=== PATIENT | female | born 1990 ===

== ENCOUNTER 2017-04-24 13:14 | Emergency (ER) | payer OTHER ==
[2017-04-24 13:32] VITALS: TEMP 98; O2SAT 100; BMI 18.0
[2017-04-24] MEDS ORDERED: Sodium Chloride 0.9% 1,000 ML IV STA (13:54)
--- NOTE | 2017-04-24 14:13 | ED PDOC ---
Arrival/HPI - General Chief Complaint: Female Genitourinary Time Seen by Provider: 04/24/17 13:43 Historian: Patient - History of Present Illness Narrative History of Present Illness (Text): 04/24/17 13:45 A 26 year old female, whom has no past medical history, presents to the emergency department complaining of lower abdominal pain and vaginal bleeding. Patient reports LMP was around March 09. Vaginal bleeding began April 12 and has not stopped, gradually worsening since then. Patient reports vaginal bleeding first appeared darkish brown, then slowly began turning into bright reddish color. 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 Patient notes also experiencing vaginal discharge, but denies of any dizziness, lightheadedness, nausea, vomiting, diarrhea, or any other complaints. Also, patient mentions having history of sexually transmitted diseases, and no history of abdominal surgeries. PMD: Dr. Koenig Symptom Onset: Gradual Symptom Course: Worsening Past Medical History - Provider Review Nursing Documentation Reviewed: Yes - Past History Past History: Non-Contributing - Infectious Disease Hx of Infectious Diseases: None - Tetanus Immunization Tetanus Immunization: Unknown - Past Medical History Past Medical History: No Previous - Psychiatric Hx Depression: No Hx Emotional Abuse: No Hx Physical Abuse: No Hx Substance Use: No - Past Surgical History Past Surgical History: No Previous - Anesthesia Hx Anesthesia: No - Suicidal Assessment Feels Threatened In Home Enviroment: No Family/Social History - Physician Review Nursing Documentation Reviewed: Yes Family/Social History: No Known Family HX Smoking Status: Never Smoked Hx Alcohol Use: No Hx Substance Use: No Hx Substance Use Treatment: No Allergies/Home Meds Allergies/Adverse Reactions: Allergies No Known Allergies Allergy (Verified 01/30/14 04:31) Home Medications: Home Meds Medication Instructions Recorded Confirmed No Known Home Med 04/24/17 04/24/17 Review of Systems - Physician Review All systems were reviewed & negative as marked: Yes - Review of Systems Gastrointestinal: Abdominal Pain (lower abdominal pain). absent: Diarrhea, Nausea, Vomiting Genitourinary Female: Vaginal Bleeding, Vaginal Discharge Neurological: absent: Dizziness, Other (lightheadedness) Physical Exam Vital Signs Reviewed: Yes Vital Signs Temp Pulse Resp BP Pulse Ox 04/24/17 17:00 66 18 121/68 100 04/24/17 15:14 64 18 118/71 100 04/24/17 13:27 98 F 65 16 122/77 100 Temperature: Afebrile Blood Pressure: Normal Pulse: Regular Respiratory Rate: Normal Appearance: Positive for: Well-Appearing Pain Distress: None Mental Status: Positive for: Alert and Oriented X 3 - Systems Exam Head: Present: Atraumatic, Normocephalic Pupils: Present: PERRL Extroacular Muscles: Present: EOMI Conjunctiva: Present: Normal Mouth: Present: Moist Mucous Membranes Neck: Present: Normal Range of Motion Respiratory/Chest: Present: Clear to Auscultation, Good Air Exchange. No: Respiratory Distress, Accessory Muscle Use Cardiovascular: Present: Regular Rate and Rhythm, Normal S1, S2. No: Murmurs Abdomen: Present: Normal Bowel Sounds. No: Tenderness, Distention, Peritoneal Signs Back: Present: Normal Inspection Upper Extremity: Present: Normal Inspection. No: Cyanosis, Edema Lower Extremity: Present: Normal Inspection. No: Edema Neurological: Present: GCS=15, CN II-XII Intact, Speech Normal Skin: Present: Warm, Dry, Normal Color. No: Rashes Psychiatric: Present: Alert, Oriented x 3, Normal Insight, Normal Concentration Medical Decision Making ED Course and Treatment: 04/24/17 13:50 Impression: 26 year old female with lower abdominal pain and vaginal bleeding. No acute findings in physical exam. Differential Diagnosis included but are not limited to: Dysfunctional uterine bleeding vs. Miscarriage Plan: -- Transvaginal Ultrasound -- Labs -- Urinalysis -- IV Fluids -- Urine Culture -- Reassess and disposition Prior Visits: Notes and results from previous visits were reviewed. Patient was last seen here in the emergency department on 06/13/2016 for abdominal pain with vomiting and diarrhea. Patient was discharged home. Progress Notes: 04/24/17 17:[address] Page OBGYN, who recommends patient to see him outpatient. He does not recommend any medications at this time. I explained results of Ultrasound with patient including good flow, ovarian cyst vs seroma and she will make sure to follow up with our recommended OBGYN. She will return if symptoms worsen or any other concern. - Lab Interpretations Lab Results: 04/24/17 14:00 04/24/17 14:00 Lab Results 04/24/17 15:15: Urine Color Light red, Urine Appearance Bloody, Urine pH 7.5, Ur Specific [place] 1.010, Urine Protein 100 H, Urine Glucose (UA) Negative, Urine Ketones Negative, Urine Blood Large H, Urine Nitrate Positive H, Urine Bilirubin Negative, Urine Urobilinogen 1.0 H, Ur Leukocyte Esterase Trace H, Urine RBC Tntc, Urine WBC 0 - 2, Ur Epithelial Cells 1 - 3, Urine HCG, Qual Negative 04/24/17 14:55: Blood Type Confirm A POSITIVE 04/24/17 14:00: PT 11.5, INR 1.04, APTT 30.8 04/24/17 14:00: Blood Type A POSITIVE, Antibody Screen Negative, BBK History Checked No verified bt 04/24/17 14:00: Beta HCG, Quant < 2.39 04/24/17 14:00: Sodium 141, Potassium 4.1, Chloride 106, Carbon Dioxide 27, Anion Gap 12, BUN 7, Creatinine 0.6 L, Est GFR ( Amer) > 60, Est GFR (Non -Af Amer) > 60, Random Glucose 82, Calcium 9.6, Total Bilirubin 0.9, AST 28, ALT 32, Alkaline Phosphatase 59, Total Protein 7.1, Albumin 4.5, Globulin 2.6, Albumin/Globulin Ratio 1.7 04/24/17 14:00: WBC 6.0, RBC 4.40, Hgb 13.1, Hct 39.4, MCV 89.5, MCH 29.8, MCHC 33.2, RDW 14.4, Plt Count 249, MPV 10.2, Gran % 43.7 L, Lymph % (Auto) 43.7 H, [place] % (Auto) 11.1 H, Eos % (Auto) 1.0 L, Baso % (Auto) 0.5, Gran # 2.60, Lymph # 2.6, [place] # 0.7 H, Eos # 0.1, Baso # 0.03 I have reviewed the lab results: Yes Interpretation: All labs normal - RAD Interpretation Radiology Orders: 04/24/17 13:52 TRANSVAGINAL [US] Stat License And Permit Specialist: Radiologist - Medication Orders Current Medication Orders: Discontinued Medications Sodium Chloride (Sodium Chloride 0.9%) 1,000 mls @ 999 mls/hr IV .Q1H1M STA Stop: 04/24/17 14:54 Last Admin: 04/24/17 14:17 Dose: 999 mls/hr eMAR Start Stop Document 04/24/17 14:17 EQ (Rec: 04/24/17 14:17 EQ [email or web address] Intravenous Solution Start Date 04/24/17 Start Time 14:17 Ketorolac Tromethamine (Toradol) 30 mg IVP STAT STA Stop: 04/24/17 16:04 Last Admin: 04/24/17 16:12 Dose: 30 mg MAR Pain Assessment Document 04/24/17 16:12 EQ (Rec: 04/24/17 16:12 EQ [email or web address] Pain Reassessment Is this a pain reassessment? No Sleep Is patient sleeping during reassessment? No Presence of Pain Presence of Pain Yes IVP Administration Document 04/24/17 16:12 EQ (Rec: 04/24/17 16:12 EQ [email or web address] Charges for Administration # of IVP Administrations 1 - Scribe Statement The provider has reviewed the documentation as recorded by the Scribe Gela Silvestre Provider Scribe Attestation: All medical record entries made by the Scribe were at my direction and personally dictated by me. I have reviewed the chart and agree that the record accurately reflects my personal performance of the history, physical exam, medical decision making, and the department course for this patient. I have also personally directed, reviewed, and agree with the discharge instructions and disposition. Disposition/Present on Arrival - Present on Arrival Any Indicators Present on Arrival: No History of DVT/PE: No History of Uncontrolled Diabetes: No Urinary Catheter: No History of Decub. Ulcer: No History Surgical Site Infection Following: None - Disposition Have Diagnosis and Disposition been Completed?: Yes Diagnosis: Dysfunctional uterine bleeding, Ovarian cyst Disposition: HOME/ ROUTINE Disposition Time: 16:55 Patient Plan: Discharge Patient Problems: Current Active Problems Problem Status Onset Dysfunctional uterine bleeding Acute Ovarian cyst Acute Condition: IMPROVED Discharge Instructions (ExitCare): Dysfunctional Uterine Bleeding (ED), Ovarian Cyst (ED) Additional Instructions: Mr Pierre Mcallister, thank you for letting us take care of you today. Your provider was Dr. Hanks. You were treated for Dysfunctional Uterine Bleeding, Ovarian Cyst. The emergency medical care you received today was directed at your acute symptoms. If you were prescribed any medication, please fill it and take as directed. It may take several days for your symptoms to resolve. Return to the Emergency Department if your symptoms worsen, do not improve, or if you have any other problems. Please contact your doctor or call one of the physicians/clinics you have been referred to that are listed on the Patient Visit Information form that is included in your discharge packet. Bring any paperwork you were given at discharge with you along with any medications you are taking to your follow up visit. Our treatment cannot replace ongoing medical care by a primary care provider (PCP) outside of the emergency department. Thank you for allowing the [facility] team to be part of your care today. If you had an X-Ray or CT scan: A Radiologist will review the ED reading if any change in treatment is needed we will contact you. If you had a blood, urine, or wound culture: It will take several days for the results, if any change in treatment is needed we will contact you. If you had an STI test: It will take 48 hours for the results. Please call after 1 week if you have not heard back. Referrals: Isreal Page [Medical Doctor] - Follow up with primary Forms: [employer] ([place]), SCHOOL NOTE
[2017-04-24 14:27] LABS: BASO # 0.03 K/mm3 (0.0-2.0); BASO % 0.5 % (0.0-3.0); EOS # 0.1 (0.0-0.7); GRAN # 2.6 (1.4-6.5); GRAN % 43.7 % (50.0-68.0); HEMATOCRIT 39.4 % (36.0-48.0); LYMPH # 2.6 (1.2-3.4); LYMPH % 43.7 % (22.0-35.0); MEAN CELL VOLUME 89.5 fl (80.0-105.0); MEAN CORPUSCULAR HEMOGLOBIN 29.8 pg (25.0-35.0); MEAN CORPUSCULAR HGB CONC 33.2 g/dl (31.0-37.0); MEAN PLATELET VOLUME 10.2 fl (7.0-11.0); MONO # 0.7 (0.1-0.6); MONO % 11.1 % (1.0-6.0); RED CELL DISTRIBUTION WIDTH 14.4 % (11.5-14.5)
[2017-04-24 14:40] LABS: ALB/GLOB RATIO 1.7 (1.1-1.8); ALKALINE PHOSPHATASE 59 U/L (38-126); ALT/SGPT 32 U/L (7-56); AST/SGOT 28 U/L (14-36); BILIRUBIN,TOTAL 0.9 mg/dL (0.2-1.3); BLOOD UREA NITROGEN 7 mg/dL (7-21); CALCIUM 9.6 mg/dL (8.4-10.5); CARBON DIOXIDE 27 mmol/L (21-33); CHLORIDE 106 mmol/L (98-107); GFR AFRICAN-AMERICAN > 60; GLUCOSE,RANDOM 82 mg/dL (70-110); POTASSIUM 4.1 mmol/L (3.6-5.0); SODIUM 141 mmol/L (132-148); TOTAL PROTEIN 7.1 g/dL (5.8-8.3)
[2017-04-24 14:54] LABS: INR 1.04 (0.93-1.08); PARTIAL THROMBOPLASTIN TIME 30.8 Seconds (25.1-36.5)
[2017-04-24 15:20] VITALS: RESP 18
[2017-04-24 15:28] LABS: PH,URINE 7.5 (4.7-8.0); URINE BILIRUBIN NEGATIVE (NEGATIVE); URINE BLOOD LARGE (NEGATIVE); URINE GLUCOSE (UA) NEGATIVE (NEGATIVE); URINE KETONE NEGATIVE (NEGATIVE); URINE LEUKOCYTE ESTERASE TRACE Leu/uL (NEGATIVE); URINE PROTEIN 100 mg/dL (<30 mg/dL)
[2017-04-24 15:32] LABS: URINE APPEARANCE BLOODY (CLEAR); URINE COLOR LIGHT RED (YELLOW)
[2017-04-24 15:34] LABS: URINE RBC TNTC /hpf (0-2); URINE WBC 0 - 2 /hpf (0-6)
--- NOTE | 2017-04-24 16:32 | US ---
HISTORY: vaginal bleeding 26-year-old female. LMP 04/10/2017 COMPARISON: 10/11/2014 transvaginal ultrasound TECHNIQUE: Transabdominal and transvaginal FINDINGS: UTERUS: Measures 6.9 x 4.2 x 4.5 cm. Normal in size and appearance. No fibroid or other mass lesion seen. ENDOMETRIUM: Measures 2.3 mm in diameter. Unremarkable. CERVIX: No cervical abnormality identified. RIGHT OVARY: Measures 3.5 x 1.7 x 1.8 cm. No solid mass. Normal flow. LEFT OVARY: Measures 7.6 x 5.4 x 6.7 cm. No solid mass. Normal flow. A 7.0 x 5.0 x 6.8 cm nearly anechoic mass most consistent with either a hemorrhagic left ovarian cyst or a endometrioma. Diffuse homogeneous low-level echoes throughout it are noted. A corpus luteal hemorrhagic cyst also is a consideration. FREE FLUID: No significant free fluid noted. OTHER FINDINGS: None. IMPRESSION: Large left ovarian minimally complicated cyst - a hemorrhagic enter corpus luteal hemorrhagic cyst versus a endometrioma is consistent with this. This is an interval change. Old exam in 68 weeks to ensure resolving features is recommended
[2017-04-24 17:05] VITALS: BP 121/68; PULSE 66
== END 2017-04-24 17:12 | disposition home or self-care (01) ==
LOC: ED 13:14
DX: N93.8 Other specified abnormal uterine and vaginal bleeding (principal); N83.202 Unspecified ovarian cyst, left side
CPT/HCPCS: 76830; 80053; 81001; 84702; 84703; 85025; 85610; 85730; 86850; 86900; 87086; 87491; 87591; 96374; 99284; J1885; J7040